=== PATIENT | female | born 2000 | race Hispanic/Latino ===

== ENCOUNTER 2025-09-28 15:41 | Emergency (ER) | payer OTHER ==
[~2025-09-28] VITALS: Ht 162.6 cm; Wt 59.4 kg
[2025-09-28 15:45] VITALS: BP 100/73; PULSE 80; RESP 20; TEMP 98.3
--- NOTE | 2025-09-28 18:42 | ERN ---
ED Note History of Present Illness Stated Complaint: COUGH Chief Complaint: Cough Time Seen by MD: 15:47 Time Seen by Midlevel: 15:47 Dictation: The patient is a 25-year-old female with a history of bronchitis, ovarian cyst, appendectomy who presents to the emergency department with complaints of one week of cough and congestion. Patient reports she had saw her PCP and they gave her dose of azithromycin but reports she stopped taking it because she was very busy moving. Patient also reports that she smokes and the smoked in made it worse and then she smoked again which made it even worse. Denies any fevers. Allergies: Coded Allergies: Penicillins (Unverified Allergy, Unknown, HIVES, 09/28/25) fentanyl (Unverified Allergy, Unknown, 09/28/25) Past Medical History Past Medical History: Anemia, Bronchitis, Hypotension Surgical History: Appendectomy Surgical History Other: X3 OVARIAN CYST REMOVAL LMP: Sep 20, 2025 RN Note Reviewed/Agreed w/PFSH: Yes Review of System Dictation Constitutional: Negative for fever,chills, and weight loss Eyes: Negative for injury, pain,redness, and discharge ENT: Negative for injury,pain or swelling Cardiovascular: Negative for chest pain, palpitations, and edema Respiratory: Negative for shortness of breath, and wheezing, positive for cough Abdomen/GI: Negative for abdominal pain, nausea, vomiting, diarrhea, and constipation Back: Negative for injury and pain : Negative for injury, bleeding and discharge MS/Extremity: Negative for injury and deformity Skin: Negative for rash, and discoloration Neuro: Negative for headache, weakness, numbness, tingling, and seizure Psych: Negative for suicide ideation, homicidal ideation, and hallucinations Initial Vital Sign VS Vital Signs Date Time Temp Pulse Resp B/P (MAP) Pulse Ox O2 Delivery O2 Flow Rate FiO2 09/28/25 15:45 98.2 80 20 100/73 99 Room Air 0 Physical Exam Dictation Vital Signs reviewed General Appearance: Alert, oriented x 3, no acute distress, well developed, nourished. Head and Face: non-traumatic. Eyes: PERRL, pink conjunctivas, eyelid no trauma, anterior chamber with arcus senilis. Ears: Pinnas intact and no signs of trauma or erythema ear canals clear and no discharge TM no erythema Nose: No discharge, no bleeding. Oropharynx: Mouth normal, tongue pink. pharynx clear,no erythema, tonsils no exudates, no abscesses noted, mucous membrane moist Neck: Supple, non-tender, no thyromegaly, no masses, no JVD, no bruits Breast:Deferred Chest:No tenderness, no crepitus, no paradoxical movement, no retractions Lungs:Clear, well-ventilated, symmetric, no rales, no wheezing, no rhonchi, no stridor, good breath sounds bilaterally Heart: Regular rate, regular rhythm, no murmur, no gallops Vascular: no peripheral edema, Abdomen: Soft, positive bowel sounds, nondistended, no guarding, nontender, no rebound, no masses no hepatomegaly, no splenomegaly, no Nguyen's sign, no hernias. Rectal: Deferred Genital: Deferred Neurological: Normal speech, motor function intact, sensory function intact Musculoskeletal: Neck nontender, full range of motion, back nontender, full range of motion, Extremities: nontender, full range of motion Skin: Color pink, dry, no turgor, no rash, no lacerations, no abrasions, no contusions. Lymphatic: Deferred Results (Laboratory/Radiology) Labs Reviewed?: Yes ED Course ED Course Orders Procedure Category Date Status Time ,Urine Test LAB 09/28/25 Logged 16:04 Influenza Type A & B, LAB 09/28/25 Logged Rapid 16:04 Covid19 (Sars Antigen LAB 09/28/25 Logged Rapid) 16:04 Rapid (Group A Strep) LAB 09/28/25 Logged 16:04 Vital Signs Date Time Temp Pulse Resp B/P (MAP) Pulse Ox O2 Delivery O2 Flow Rate FiO2 09/28/25 15:45 98.2 80 20 100/73 99 Room Air 0 Medical Decision Making MDM The patient is a 25-year-old female with a history of bronchitis, ovarian cyst, appendectomy who presents to the emergency department with complaints of one week of cough and congestion. Patient reports she had saw her PCP and they gave her dose of azithromycin but reports she stopped taking it because she was very busy moving. Patient also reports that she smokes and the smoked in made it worse and then she smoked again which made it even worse. Denies any fevers. Patient eloped from ER. DX & DISP Disposition: Other(Comment) (Eloped) Departure Condition: Stable I have reviewed the case, and I agree with, Diagnosis and Plan [facility] Sep 28, 2025 18:42
== END 2025-09-28 16:53 | disposition left against medical advice (07) ==
LOC: EDH 15:41
DX: R05.9 Cough, unspecified (principal); R09.89 Other specified symptoms and signs involving the circulatory and respiratory systems; F17.200 Nicotine dependence, unspecified, uncomplicated; Z88.0 Allergy status to penicillin; Z88.6 Allergy status to analgesic agent; Z87.42 Personal history of other diseases of the female genital tract; Z90.49 Acquired absence of other specified parts of digestive tract; Z53.21 Procedure and treatment not carried out due to patient leaving prior to being seen by health care provider; Z88.5 Allergy status to narcotic agent; Z98.890 Other specified postprocedural states; Z53.29 Procedure and treatment not carried out because of patient's decision for other reasons
CPT/HCPCS: 99282